=== PATIENT | female | born 1945 | race Caucasian/White ===

== ENCOUNTER 2016-11-25 05:58 | Day surgery (SDC) | payer OTHER ==
[~2016-11-25 05:58] MED LIST: LIDOCAINE W/ SODIUM BICARB 0.5 ML SYR ONE; Lactated Ringers 1,000 ML PRIMARY IV ONE; ceFAZolin Inj 2gm (Premix) 50 ML IV ONE
--- NOTE | 2016-11-25 06:33 | EKG ---
[address] [address] Measurements Intervals [place] Rate: 80 P: 77 ID: [id number] QRS: 96 QRSD: 94 T: 60 QT: 370 QTc: 405 Interpretive Statements SINUS RHYTHM BORDERLINE RIGHT AXIS DEVIATION No previous ECG available for comparison Electronically Signed On 11-25-16 07:46:25 MDT by Samir Walsh [id number]
[2016-11-25] MEDS ORDERED: BUPivacaine Inj 0.25% PF - 10ml vial ONE ×2 (06:39→08:58)
[2016-11-25] MEDS ORDERED: BETAMET ACET/BETAMET NA PH 6 MG/1 ML - 5 ML ONE (06:40)
[2016-11-25] MEDS ORDERED: Ropivacaine 0.2% VIAL 20 ML ONE (06:40)
[2016-11-25] MEDS ORDERED: EPINEPHrine Inj (1:1,000) 30mg/30ml vial ONE (06:40)
[2016-11-25] MEDS ORDERED: fentaNYL Inj 250 MCG/5 ML VIAL ONE (07:02)
[2016-11-25] MEDS ORDERED: LIDOCAINE MPF 2% - 5 ML (20 MG/1 ML) ONE (07:02)
[2016-11-25] MEDS ORDERED: MIDAZOLAM 5 MG/1 ML ONE (07:02)
[2016-11-25] MEDS ORDERED: DEXAMETHASONE SOD PHOSPHATE 4 MG/1 ML VIAL ONE (08:07)
[2016-11-25] MEDS ORDERED: KETOROLAC 30 MG/1 ML VIAL ONE (08:07)
[2016-11-25] MEDS ORDERED: KETAMINE 100 MG/1 ML - 5 ML ONE (08:07)
[2016-11-25] MEDS ORDERED: ONDANSETRON 4 MG/2 ML VIAL ONE (08:07)
[2016-11-25] MEDS ORDERED: ePHEDrine Inj 50 MG/ML AMP ONE (08:18)
[2016-11-25] MEDS ORDERED: Lactated Ringers 1,000 ML PRIMARY IV ONE (08:34)
[2016-11-25] MEDS ORDERED: BETAMET ACET/BETAMET NA PH 6 MG/1 ML - 5 ML IAC ONE (08:40)
[2016-11-25] MEDS ORDERED: Ondansetron ODT Tab 8 MG TAB PO PRN (09:03)
[2016-11-25] MEDS ORDERED: Prochlorperazine Tab 10 MG TAB PO PRN (09:03)
[2016-11-25] MEDS ORDERED: ACETAMINOPHEN 325 MG TABLET PO PRN (09:03)
[2016-11-25] MEDS ORDERED: BISACODYL 10 MG SUPPOSITORY RECTAL PRN (09:03)
[2016-11-25] MEDS ORDERED: diphenhydrAMINE 25 MG CAPSULE PO PRN (09:03)
[2016-11-25] MEDS ORDERED: ONDANSETRON 4 MG/2 ML VIAL IVP PRN (09:03)
[2016-11-25] MEDS ORDERED: NORMAL SALINE 10 ML SYRINGE FLUSH IVP PRN (09:03)
[2016-11-25] MEDS ORDERED: IBUPROFEN 400 MG TABLET PO PRN (09:03)
[2016-11-25] MEDS ORDERED: KETOROLAC 15 MG/1 ML VIAL IVP PRN (09:03)
[2016-11-25] MEDS ORDERED: MORPHINE SULFATE 2 MG/1 ML IVP PRN (09:03)
[2016-11-25] MEDS ORDERED: MAG HYDROX/AL HYDROX/SIMETH 30 ML SUSP PO PRN (09:03)
[2016-11-25] MEDS ORDERED: BISACODYL 5 MG TABLET PO PRN (09:03)
[2016-11-25] MEDS ORDERED: CALCIUM CARBONATE 500 MG (TUMS) CHEWABLE TABLET PO PRN (09:03)
[2016-11-25] MEDS ORDERED: ACETAMINOPHEN WITH CODEINE 300 MG/30 MG TABLET PO PRN (09:13)
[2016-11-25 09:30] VITALS: RESP 12
[2016-11-25] MEDS ORDERED: ACETAMINOPHEN WITH CODEINE 300 MG/30 MG TABLET PO ONE (11:08)
[2016-11-25 11:34] VITALS: TEMP 98.3
--- NOTE | 2016-11-25 16:32 | OPS CRUTCH ---
Diagnosis : Right Knee Scope Referral Reason: Knee Cryo Cuff/Walker O: The patient was issued a knee Cryo-Cuff and a walker and instructed in their proper use and care. P: No further therapy is indicated at this time. MTDD
[2016-11-26] MEDS ORDERED: ASPIRIN 325 MG EC TABLET PO SCH (09:00)
== END 2016-11-25 11:20 | disposition home or self-care (01) ==
LOC: SDSC 05:58
PROVIDERS: ATTEND Orthopaedic Surgery
DX: M23.203 Derangement of unspecified medial meniscus due to old tear or injury, right knee (principal); M23.200 Derangement of unspecified lateral meniscus due to old tear or injury, right knee; M67.51 Plica syndrome, right knee; M22.41 Chondromalacia patellae, right knee
CPT/HCPCS: 29873; 29876; 29880; 93005; 93010; J0171; J0690; J0702; J1885; J2704; J2795; J3010; J1100; J2001; J2250; J2405; J7120

== ENCOUNTER 2018-09-30 07:30 | Inpatient (IN) ==
[~2018-09-30 07:30] MED LIST changes: -LIDOCAINE W/ SODIUM BICARB 0.5 ML SYR ONE; +LIDOCAINE W/ SODIUM BICARB 0.5 ML SYR SUBD PRN; -Lactated Ringers 1,000 ML PRIMARY IV ONE; +Nasal Sanitizer POPSWAB ampule 3 AMP (Nozin) PREOP DOSE ENOS SCH; +ceFAZolin Inj 2gm (Premix) 2 GM/50 ML BAG IV ONE; -ceFAZolin Inj 2gm (Premix) 50 ML IV ONE
[2018-09-30] MEDS ORDERED: LIDOCAINE W/ SODIUM BICARB 0.5 ML SYR ONE (07:33)
[2018-09-30] MEDS ORDERED: Lactated Ringers 1,000 ML PRIMARY IV ONE (07:33)
[2018-09-30] MEDS ORDERED: ceFAZolin Inj 2gm (Premix) 2 GM/50 ML BAG IV ONE (07:33)
[2018-09-30] MEDS: Lactated Ringers 1,000 ML PRIMARY IV SCH ×3 (08:58→16:13)
[2018-09-30 09:07] LABS: BILIRUBIN,URINE NEGATIVE (NEG); CLARITY,URINE CLEAR (CLEAR); COLOR,URINE YELLOW (Y); GLUCOSE, URINE (UA) NEGATIVE (NEG); OCCULT BLOOD,URINE NEGATIVE (NEG); PH,URINE 7.5 (5.0-8.5); PROTEIN,URINE NEGATIVE (NEG); UROBILINOGEN,URINE 0.2 EU/dL (0.2)
[2018-09-30 09:09] LABS: URINE SAMPLE TYPE CLEAN CATCH URINE
[2018-09-30] MEDS ORDERED: BACITRACIN 50,000 UNIT VIAL IRRIG ONE ×2 (10:40→12:11)
[2018-09-30] MEDS ORDERED: Sodium Chloride 0.9% vial 40 ML ONE (10:40)
[2018-09-30] MEDS ORDERED: BUPivacaine Liposome/PF (Exparel) Inj 20ml vial INFIL ONE (10:41)
[2018-09-30] MEDS ORDERED: PROPOFOL 10 MG/1 ML (200 MG/20 ML) VIAL IV ONE (10:45)
[2018-09-30] MEDS ORDERED: fentaNYL Inj 250 MCG/5 ML VIAL ONE (10:46)
[2018-09-30] MEDS ORDERED: MIDAZOLAM 5 MG/1 ML ONE (10:46)
[2018-09-30] MEDS ORDERED: LIDOCAINE MPF 2% - 5 ML (20 MG/1 ML) ONE (10:46)
[2018-09-30] MEDS ORDERED: ROCURONIUM 10 MG/1 ML - 5 ML VIAL IVP ONE (10:48)
[2018-09-30] MEDS ORDERED: Sodium Chloride 0.9% 0 ML PRIMARY IV ONE (11:09)
[2018-09-30] MEDS ORDERED: Ketorolac Inj 30 MG, Morphine Inj (Ortho Cocktail) 5 MG, BUPivacaine Inj 0.25% PF 150 MG SPLASH ONE ×3 (11:15)
--- NOTE | 2018-09-30 11:29 | ORTHO.OP ---
- - -: See Dictated Operative Report
[2018-09-30] MEDS ORDERED: KETAMINE HCL 100 MG/2 ML SYRINGE IV ONE (11:44)
[2018-09-30] MEDS ORDERED: ePHEDrine Inj 50 MG/ML AMP ONE (11:52)
[2018-09-30] MEDS ORDERED: TRANEXAMIC ACID 1,000 MG / 10 ML VIAL ONE ×2 (11:56→12:02)
[2018-09-30] MEDS ORDERED: SUFENTANIL 50 MCG/1 ML ONE (12:10)
[2018-09-30] MEDS ORDERED: Sodium Chloride 0.9% vial 20 ML ONE (12:11)
--- NOTE | 2018-09-30 13:47 | CRNA.PROGR ---
Anesthesia Time - Procedure/Recovery Time Start Date: 09/30/18 End Date: 09/30/18 Anesthesia : Time In: 11:06 Anesthesia : Time Out: 13:32 Anesthesia : Total Time: 146 - Total Anesthesia Time Total Anesthesia Time (minutes): 146 - Other Weight: 54.885 kg Height: 5 ft 5 in Body Mass Index (BMI): 20.1 Physical Status: P2
--- NOTE | 2018-09-30 13:48 | CRNA.PROGR ---
Anesthesia Recovery Phase I - Post Anesthesia Evaluation Patient's Condition on Arrival in Phase I: Stable Pain Level: 1
[2018-09-30 14:08] LABS: Hematocrit [HCT] 27.5 % (37.0-47.0); Hemoglobin [HGB] 9.4 g/dL (12.0-16.0)
--- NOTE | 2018-09-30 14:15 | DI ---
XR HIP COMPLETE MIN 2VW U/L 09/30/2018 11:08 AM History: [facility] DI ^post op Comparison: None. Findings: AP view of the pelvis and AP/crosstable lateral views of the right hip demonstrate bilatera l total hip arthroplasties. There is gas in the soft tissues on the right, an expected finding in the immediate postoperative timeframe. Hardware demonstrates expected alignment without evidence of frac ture or loosening. There is no acute fracture or dislocation. Dystrophic calcifications are noted cosme ng the lateral aspect of the left hip. There are degenerative changes of the lumbar spine. Surgical s taples overlie the lateral skin of the right hip. The soft tissues are otherwise unremarkable. Impression: Status post right total hip arthroplasty without evidence of hardware complication or ac [place] osseous abnormality.
[2018-09-30] MEDS ORDERED: Ondansetron ODT Tab 8 MG TAB PO PRN (14:41)
[2018-09-30] MEDS ORDERED: IBUPROFEN 400 MG TABLET PO PRN (14:41)
[2018-09-30] MEDS ORDERED: diphenhydrAMINE 25 MG CAPSULE PO PRN (14:41)
[2018-09-30] MEDS ORDERED: MORPHINE SULFATE 2 MG/1 ML IVP PRN (14:41)
[2018-09-30] MEDS ORDERED: CALCIUM CARBONATE 500 MG (TUMS) CHEWABLE TABLET PO PRN (14:41)
[2018-09-30] MEDS ORDERED: HYDROcodone-APAP 5 MG -325 MG TABLET PO PRN (14:41)
[2018-09-30] MEDS ORDERED: BISACODYL 10 MG SUPPOSITORY RECTAL PRN (14:41)
[2018-09-30] MEDS ORDERED: MAG HYDROX/AL HYDROX/SIMETH 30 ML SUSP PO PRN (14:41)
[2018-09-30] MEDS ORDERED: Prochlorperazine Tab 10 MG TAB PO PRN (14:41)
[2018-09-30] MEDS ORDERED: MORPHINE SULFATE 10 MG/1 ML IV PRN (15:00)
[2018-09-30] MEDS ORDERED: MORPHINE SULFATE 2 MG/1 ML IV PRN (15:00)
[2018-09-30] MEDS ORDERED: MORPHINE SULFATE 4 MG/1 ML IV PRN (15:00)
--- NOTE | 2018-09-30 18:23 | CONSULT ---
Consult Note - Consult Consult Date: 09/30/18 Reason for Consult: PostOp Consulation : Ortho Primary Care Provider: NONE NONE - History of Present Illness History of Present Illness: This is a 72 years old female with medical history significant for history of hypertension, hypothyroidism and allergies, said she had history of gluten allergies however she is not on gluten free diet she said she is on Singulair for it also history of arthritis for which she came into have a right hip replacement and was done by Dr. Barragan today the hospitalist service were consulted for management of medical issues. Patient is denying complaint there is no pain now. she had some nausea earlier but that's gone. No other symptoms. Past Medical History Medical History: 1. Hypertension. 2. Hypothyroidism. 3. History of allergies, she is on Singulair for it. Surgical History: 1. History of for previous 3 hip surgeries. 2. History of inguinal hernia surgery Family History: Reviewed an Not Pertinent Past Social History: Does not smoke, does not drink and no drugs. Lives in [place]. Tobacco Use: Never Smoker In the Past 12 Months, Have Used or Abuse Any of the Following Substance: None Alcohol Use: None Review of Systems - Review of Systems All Systems: Reviewed & No Additional Complaints Except as Stated Medication / Allergies Home Medications: Home Medications Medication Instructions Recorded Confirmed Type Amlodipine Besylate 5 mg PO DAILY 09/15/18 09/30/18 History Ascorbic Acid [Vitamin C] 1,000 mg PO DAILY 09/15/18 09/30/18 History Biotin 1 mg PO DAILY 09/15/18 09/30/18 History Calcium Carbonate [Calcium] 500 mg PO DAILY 09/15/18 09/30/18 History Cholecalciferol (Vitamin D3) 1 tab PO DAILY 09/15/18 09/30/18 History [Vitamin D-400] Collagen, Hydrolysate (Bovine) 1 cap PO DAILY 09/15/18 09/30/18 History [Collagen Hydrolysate] Cyanocobalamin (Vitamin B-12) 2,500 mcg PO DAILY 09/15/18 09/30/18 History [Vitamin B12] Levocetirizine Dihydrochloride 5 mg PO PRN PRN 09/15/18 09/30/18 History [Xyzal] Levothyroxine Sodium 75 mcg PO DAILY 09/15/18 09/30/18 History Montelukast Sodium [Singulair] 10 mg PO HS 09/15/18 09/30/18 History [place]-3 Fatty Acids/Fish Oil 1 ea PO DAILY 09/15/18 09/30/18 History [[place] 3 1,000 mg Softgel] Vitamin B Complex 1 ea PO DAILY 09/15/18 09/30/18 History Zinc 50 mg PO DAILY 09/15/18 09/30/18 History Tramadol HCl 50 mg PO PRN PRN #60 tab 09/30/18 Rx Allergies/Adverse Reactions: Allergies Allergy/AdvReac Type Severity Reaction Status Date / Time No Known Allergies Allergy Verified 09/29/18 09:22 Exam - Vitals Vital Signs: Vital Signs Temperature 97 F Temperature Source Temporal Artery Scan Pulse Rate [Pulse Oximeter] 97 Pulse Rate 100 Respiratory Rate 20 Blood Pressure [Right Arm] 104/89 Blood Pressure 140/76 Pulse Ox 100 Oxygen Flow Rate RA Oxygen Delivery Method Room Air Height 5 ft 5 in Weight 121 lb - General General Appearance: No Acute Distress, Cooperative - Head Head Exam: Normal Inspection - Eye Eye Exam: POSITIVE: Normal Appearance - ENT ENT Exam: POSITIVE: Normal Exam - Neck Neck Exam: Normal Inspection - Respiratory Respiratory Exam: POSITIVE: Clear to Auscultation - Bilaterally - Cardiovascular Cardiovascular Exam: POSITIVE: RRR, Systolic Murmur - GI/Abdominal GI/Abdominal Exam: POSITIVE: Normal Bowel Sounds, Non Tender, Non Distended, Soft, No Organomegaly - Rectal Rectal Exam: POSITIVE: Deferred - External Exam: POSITIVE: Deferred Exam: POSITIVE: Deferred - Extremities Additional Extremities Exam Details: Dressing applied to the right hip posteriorly with a drain present. - Back Back Exam: POSITIVE: Normal Inspection - Neurological Neurological Exam: POSITIVE: Alert, Oriented x 3, CN II-XII Intact, No Facial Droop, Speech Intact / Clear - Psychiatric Psychiatric Exam: POSITIVE: Normal Affect Results - Labs CBC and BMP: 10/01/18 05:00 10/01/18 05:00 Assessment and Plan - Patient Problems (1) Status post right hip replacement Current Visit: Yes Status: Acute Comment: She will start PT and OT. For DVT prophylaxis she was put on Lovenox by Dr. Barragan. Code(s): Z96.641 - Presence of right artificial hip joint (2) Hypertension Current Visit: Yes Status: Acute Comment: Blood pressure is borderline I think will see what's her blood pressure tomorrow then will decide if we will restart her amlodipine. Code(s): I10 - Essential (primary) hypertension (3) Hypothyroidism Current Visit: Yes Status: Acute Comment: Continue same medications. Code(s): E03.9 - Hypothyroidism, unspecified (4) History of multiple allergies Current Visit: Yes Status: Acute Comment: She is on Singulair will verify the dosage and put her on it. Code(s): Z91.89 - Other specified personal risk factors, not elsewhere classifi ed
[2018-09-30] MEDS: ceFAZolin Inj 2gm (Premix) 2 GM/50 ML BAG IV SCH (18:47)
[2018-09-30] MEDS ORDERED: Montelukast Tab 10 MG TAB PO SCH (21:00)
[2018-09-30] MEDS: Montelukast Tab 10 MG TAB PO SCH (22:01)
[2018-09-30] MEDS: DOCUSATE 100 MG CAPSULE PO SCH (22:02)
[2018-09-30] MEDS: ONDANSETRON 4 MG/2 ML VIAL IVP PRN (22:44)
[2018-10-01] MEDS: Lactated Ringers 1,000 ML PRIMARY IV SCH ×4 (02:47→19:44)
[2018-10-01] MEDS: ceFAZolin Inj 2gm (Premix) 2 GM/50 ML BAG IV SCH (02:49)
[2018-10-01] MEDS: ONDANSETRON 4 MG/2 ML VIAL IVP PRN ×3 (05:20→23:06)
[2018-10-01 05:38] LABS: MEAN CORPUSCULAR HGB CONC 33.5 g/dL (33-37); MEAN CORPUSCULAR VOLUME 110.6 FL (81-99); MEAN PLATELET VOLUME 9.1 FL (7.4-12.2); RED BLOOD COUNT 1.89 10^6/uL (4.20-5.40)
[2018-10-01 05:43] LABS: Hematocrit [HCT] 20.9 % (37.0-47.0)
[2018-10-01 05:48] LABS: BLOOD UREA NITROGEN 11 mg/dL (7-22)
[2018-10-01] MEDS ORDERED: Sodium Chloride 0.9% 500 ML PRIMARY IV ONE (05:49)
--- NOTE | 2018-10-01 07:49 | PDOC(PROG) ---
Date of Service: 10/01/18 Time of Service: 08:00 Interval History: Subjective Patient feels nauseated today. Mostly dry heaving. Her daughter said it happened after her shoulder surgery also. I did talk to her about her low white cell count and apparently she had it for about 2 years. She never had a bone marrow biopsy apparently her primary wanted her to have it but the oncologist didn't think it was necessary. Her last white count in August was 1.7. Hemoglobin was 11.8. She is not complaining from pain in her hip today. What seems to help her pain in the past was tramadol. Objective : Data - Labs CBC and BMP: 10/01/18 05:00 10/01/18 05:00 Objective : Exam - General General Appearance: No Acute Distress Additional General Exam Details: Dry heaving - Head Head Exam: Normal Inspection - Eye Eye Exam: Normal Appearance - ENT ENT Exam: Normal Exam - Neck Neck Exam: Normal Inspection - Respiratory Respiratory Exam: Clear to Auscultation - Bilaterally - Cardiovascular Cardiovascular Exam: RRR, Systolic Murmur - GI/Abdominal GI/Abdominal Exam: Normal Bowel Sounds, Non Tender, Non Distended, Soft, No Organomegaly - Rectal Rectal Exam: Deferred - External Exam: Deferred - Extremities Extremities Exam: Normal Inspection - Back Back Exam: Normal Inspection - Neurological Neurological Exam: Alert, Oriented x 3, CN II-XII Intact, No Facial Droop, Speech Intact / Clear - Psychiatric Psychiatric Exam: Normal Affect - Integumentary Integumentary Exam: Pallor Assessment and Plan - Patient Problems (1) Status post right hip replacement Current Visit: Yes Status: Acute Comment: She started PT and OT. For DVT prophylaxis she is on Lovenox. Code(s): Z96.641 - Presence of right artificial hip joint (2) Hypertension Current Visit: Yes Status: Acute Comment: We'll continue holding amlodipine as blood pressure still borderline. Code(s): I10 - Essential (primary) hypertension (3) Hypothyroidism Current Visit: Yes Status: Acute Comment: Same med Code(s): E03.9 - Hypothyroidism, unspecified (4) History of multiple allergies Current Visit: Yes Status: Acute Comment: Continue Singulair. Code(s): Z91.89 - Other specified personal risk factors, not elsewhere classified (5) Leukopenia Current Visit: Yes Status: Acute Comment: Apparently she had it before I'm not sure whether she had a B12/folate deficiency we'll check those. She suppose to be on B12 oral tab based on her medication list. Code(s): D72.819 - Decreased white blood cell count, unspecified (6) Postoperative anemia due to acute blood loss Current Visit: Yes Status: Acute Comment: Hemoglobin is low given 2 units of blood. Will Repeat her labs tomorro w. Code(s): D62 - Acute posthemorrhagic anemia
--- NOTE | 2018-10-01 08:54 | ORTHO.PROG ---
Progress Note -: Vital Signs - Last Taken Temperature 98.4 F 10/01/18 08:40 Pulse Rate 92 10/01/18 08:40 Respiratory Rate 16 10/01/18 08:40 Blood Pressure 117/60 10/01/18 08:40 Pulse Ox 93 10/01/18 08:40 Laboratory Results 09/30/18 09/30/18 09/30/18 08:59 09:35 09:35 WBC RBC Hgb Hct MCV MCH MCHC RDW Std Deviation RDW Coeff of Valeria Plt Count MPV Sodium Potassium Chloride Carbon Dioxide Anion Gap BUN Creatinine BUN/Creatinine Ratio Glucose Calculated Osmolality Calcium Ur Collection Type Clean catch urine Urine Color Yellow Urine Clarity Clear Urine pH 7.5 Ur Specific [place] 1.015 Urine Protein Negative Urine Glucose (UA) Negative Urine Ketones 15 Urine Occult Blood Negative Urine Nitrate Negative Urine Bilirubin Negative Urine Urobilinogen 0.2 Ur Leukocyte Esterase Negative Blood Type O POSITIVE Antibody Screen Negative Crossmatch See Detail See Detail 09/30/18 10/01/18 10/01/18 14:01 05:00 05:00 WBC 2.01 L RBC 1.89 L Hgb 9.4 L 7.0 L Hct 27.5 L 20.9 L* MCV 110.6 H MCH 37.0 H MCHC 33.5 RDW Std Deviation 57.5 H RDW Coeff of Valeria 15.5 H Plt Count 146 MPV 9.1 Sodium 136 Potassium 3.6 L Chloride 102 Carbon Dioxide 28 Anion Gap 6 BUN 11 Creatinine 0.5 BUN/Creatinine Ratio 22.00 H Glucose 102 Calculated Osmolality 280.0 Calcium 8.2 L Ur Collection Type Urine Color Urine Clarity Urine pH Ur Specific [place] Urine Protein Urine Glucose (UA) Urine Ketones Urine Occult Blood Urine Nitrate Urine Bilirubin Urine Urobilinogen Ur Leukocyte Esterase Blood Type Antibody Screen Crossmatch Subjective: - Postop Day [1] c/o nausea and daughter states only scop patches worked after her shoulder surgery. Objective: - Taking PO pain medication - Tolerating regular diet - - Ambulating to chair - Labs and Vital Signs reviewed Assessment: - CMS intact - Prevena dressing intact Plan: - Discharge home once cleared by Physical Therapy - Nursing to provide and educated patient on changing dressing to a [place] dressing on postop day 7 or if Pervena losses suction before postop day 7 consider scop patch and transfusion. will discuss with hospitalist.
[2018-10-01] MEDS ORDERED: Montelukast Tab 10 MG TAB PO SCH (09:00)
[2018-10-01] MEDS ORDERED: SCOPOLAMINE HYDROBROMIDE 1.5 MG - 1 EACH PATCH TRANSDERM SCH (09:00)
[2018-10-01] MEDS ORDERED: BIOTIN 1 MG PO SCH (09:00)
[2018-10-01] MEDS: traMADol 50 MG TABLET PO PRN ×2 (09:45→21:47)
[2018-10-01 10:13] LABS: BAND NEUTROPHILS % 4 % (0-10); MONOCYTES % (MANUAL) 19 % (0-12); NEUTROPHILS % (MANUAL) 36 % (50-80)
[2018-10-01 10:14] LABS: BASOPHILS % (MANUAL) 0 % (0-1); EOSINOPHILS % (MANUAL) 1 % (0-8); PLATELET MORPHOLOGY COMMENT NORMAL MORPHOLOGY (NORM)
[2018-10-01 10:15] LABS: RBC MORPHOLOGY COMMENT NORMAL MORPHOLOGY (NORM)
[2018-10-01 10:18] LABS: WBC MORPHOLOGY COMMENT SEE COMMENTS (NORM)
[2018-10-01] MEDS ORDERED: DIAZEPAM 10 MG/2 ML (5 MG/1 ML) CARPUJECT IVP ONE (10:30)
[2018-10-01] MEDS ORDERED: DIAZEPAM 10 MG/2 ML (5 MG/1 ML) CARPUJECT IVP PRN (11:11)
[2018-10-01] MEDS: LEVOTHYROXINE 75 MCG TABLET PO SCH (11:35)
[2018-10-01] MEDS: DOCUSATE 100 MG CAPSULE PO SCH ×2 (11:35→21:15)
[2018-10-01] MEDS: ENOXAPARIN SODIUM 30 MG/0.3 ML SYRINGE SUBCUT SCH ×2 (11:47→21:16)
[2018-10-01] MEDS: Multivitamin Tab 1 TAB PO SCH (11:47)
[2018-10-01] MEDS: CYANOCOBALAMIN (VITAMIN B-12) 1,000 MCG TABLET.ER PO SCH (11:48)
[2018-10-01] MEDS: ASCORBIC ACID Chewable 500 MG TABLET PO SCH (11:48)
[2018-10-01] MEDS: PANTOPRAZOLE IV 40 MG VIAL IVP SCH (14:24)
--- NOTE | 2018-10-01 16:46 | PT.PROG ---
Progress Note Progress Note: attempted eval 2 x and pt was asleep in the afternoon. will attempt eval tomorrow.
[2018-10-01] MEDS: Montelukast Tab 10 MG TAB PO SCH (21:16)
[2018-10-02] MEDS: ONDANSETRON 4 MG/2 ML VIAL IVP PRN (04:04)
[2018-10-02] MEDS: traMADol 50 MG TABLET PO PRN ×5 (04:05→16:34)
[2018-10-02] MEDS: LEVOTHYROXINE 75 MCG TABLET PO SCH (04:51)
[2018-10-02 05:18] LABS: Hematocrit [HCT] 28.1 % (37.0-47.0); Hemoglobin [HGB] 9.2 g/dL (12.0-16.0); MEAN CORPUSCULAR HEMOGLOBIN 33.8 PG (27-31); MEAN CORPUSCULAR HGB CONC 32.7 g/dL (33-37); MEAN CORPUSCULAR VOLUME 103.3 FL (81-99); MEAN PLATELET VOLUME 9.6 FL (7.4-12.2); RED BLOOD COUNT 2.72 10^6/uL (4.20-5.40)
[2018-10-02 05:29] LABS: BLOOD UREA NITROGEN 8 mg/dL (7-22); BUN/CREATININE RATIO 13.33 (6-20)
[2018-10-02 06:15] LABS: PLATELET MORPHOLOGY COMMENT NORMAL MORPHOLOGY (NORM); RBC MORPHOLOGY COMMENT NORMAL MORPHOLOGY (NORM); WBC MORPHOLOGY COMMENT NORMAL MORPHOLOGY (NORM)
[2018-10-02 06:25] LABS: BAND NEUTROPHILS % 0 % (0-10); BASOPHILS % (MANUAL) 0 % (0-1); EOSINOPHILS % (MANUAL) 0 % (0-8); METAMYELOCYTES % 7 %; MONOCYTES % (MANUAL) 12 % (0-12); MYELOCYTES % 3 %; NEUTROPHILS % (MANUAL) 66 % (50-80); PROMYELOCYTES % 0 %
--- NOTE | 2018-10-02 08:09 | PDOC(PROG) ---
Date of Service: 10/02/18 Time of Service: 08:15 Interval History: Subjective Patient feels better today compared to yesterday. She looks better. She is denying significant pain in her hip while laying down but she says it increased with movement. Objective : Data - Labs CBC and BMP: 10/02/18 04:35 10/02/18 04:35 Objective : Exam - General General Appearance: No Acute Distress, Cooperative - Head Head Exam: Normal Inspection - Eye Eye Exam: Normal Appearance - ENT ENT Exam: Normal Exam - Neck Neck Exam: Normal Inspection - Respiratory Respiratory Exam: Clear to Auscultation - Bilaterally - Cardiovascular Cardiovascular Exam: RRR - GI/Abdominal GI/Abdominal Exam: Normal Bowel Sounds, Non Tender, Non Distended, Soft, No Organomegaly - Rectal Rectal Exam: Deferred - External Exam: Deferred - Extremities Extremities Exam: Normal Inspection - Back Back Exam: Normal Inspection - Neurological Neurological Exam: Alert, Oriented x 3, CN II-XII Intact, Speech Intact / Clear, Moves All Extremities Equally - Psychiatric Psychiatric Exam: Normal Affect - Integumentary Integumentary Exam: Normal Color Assessment and Plan - Patient Problems (1) Status post right hip replacement Current Visit: Yes Status: Acute Comment: She did not do much of PT or OT yesterday because she was getting transfusion and she received Valium when she slipped. She will do PT and OT today and then will see her progress. will Cut back on the fluid and then will stop it. Nausea seemed to be improved. For DVT prophylaxis she is on Lovenox. Code(s): Z96.641 - Presence of right artificial hip joint (2) Hypertension Current Visit: Yes Status: Acute Comment: Continue holding amlodipine Code(s): I10 - Essential (primary) hypertension (3) Hypothyroidism Current Visit: Yes Status: Acute Comment: Same med Code(s): E03.9 - Hypothyroidism, unspecified (4) History of multiple allergies Current Visit: Yes Status: Acute Comment: Continue Singulair. Code(s): Z91.89 - Other specified personal risk factors, not elsewhere classified (5) Leukopenia Current Visit: Yes Status: Acute Comment: White count seemed to be better today. Code(s): D72.819 - Decreased white blood cell count, unspecified (6) Postoperative anemia due to acute blood loss Current Visit: Yes Status: Acute Comment: Hemoglobin is better today we'll hold off on further transfusion. Code(s): D62 - Acute posthemorrhagic anemia
[2018-10-02] MEDS ORDERED: ZINC 50 MG PO SCH (09:00)
[2018-10-02] MEDS ORDERED: CYCLOBENZAPRINE 10 MG TABLET PO PRN (09:18)
--- NOTE | 2018-10-02 09:30 | ORTHO.PROG ---
Last Taken Vital Signs: Vital Signs - Last Taken Temperature 98.3 F 10/02/18 07:25 Pulse Rate 90 10/02/18 07:25 Respiratory Rate 18 10/02/18 07:25 Blood Pressure 105/65 10/02/18 07:25 Pulse Ox 93 10/02/18 07:25 Subjective: Patient is POD 2 from Right MIRANDA. She reports increased pain in the right anterior hip radiating into her thigh when ambulating. She is currently taking tramadol for pain and feels that her pain is somewhat controlled on this medication. Denies any current N/V, calf pain, CP, SOB, or dizziness. Objective: Fall Risk Total Score Fall Risk Score Laboratory Results 09/30/18 10/01/18 10/02/18 09:35 07:36 04:35 WBC RBC Hgb Hct MCV MCH MCHC RDW Std Deviation RDW Coeff of Valeria Plt Count MPV Neutrophils % (Manual) 36 L Band Neutrophils % 4 Lymphocytes % (Manual) 40 Monocytes % (Manual) 19 H Eosinophils % (Manual) 1 Basophils % (Manual) 0 Metamyelocytes % Myelocytes % Promyelocytes % Blast Cells WBC Morphology Comment See comments Plt Morphology Comment Normal morphology RBC Morph Comment Normal morphology Sodium 134 L Potassium 3.4 L Chloride 101 Carbon Dioxide 28 Anion Gap 5 BUN 8 Creatinine 0.6 BUN/Creatinine Ratio 13.33 Glucose 101 Calculated Osmolality 275.0 Calcium 8.2 L Blood Type O POSITIVE Antibody Screen Negative Crossmatch See Detail 10/02/18 04:35 WBC 5.70 RBC 2.72 L Hgb 9.2 L Hct 28.1 L MCV 103.3 H MCH 33.8 H MCHC 32.7 L RDW Std Deviation 64.2 H RDW Coeff of Valeria 18.5 H Plt Count 126 L MPV 9.6 Neutrophils % (Manual) 66 Band Neutrophils % 0 Lymphocytes % (Manual) 12 Monocytes % (Manual) 12 Eosinophils % (Manual) 0 Basophils % (Manual) 0 Metamyelocytes % 7 Myelocytes % 3 Promyelocytes % 0 Blast Cells 0 WBC Morphology Comment Normal morphology Plt Morphology Comment Normal morphology RBC Morph Comment Normal morphology Sodium Potassium Chloride Carbon Dioxide Anion Gap BUN Creatinine BUN/Creatinine Ratio Glucose Calculated Osmolality Calcium Blood Type Antibody Screen Crossmatch On exam, patient is A&O x 3 and is not in any acute distress. She is up ambulating with PT. Negative calf tenderness. Dressing clean/dry/intact. NV intact. Radiograph of right hip shows s/p Right MIRANDA with well fixed and positioned components. Assessment: POD 2 from routine right MIRANDA stable and doing well. Pain controlled, but does report having leg cramping and anterior thigh pain with ambulating. Plan: * WBAT with walker * Patient not currently cleared by PT for discharge and will stay another day * DVT ppx: continue lovenox then discharge home on ASA 81mg 1 tablet daily * discharge home with portable SCDs * wound care: continue Prevena until POD 5 then discontinue and shower as normal * pain meds: increase tramadol 50mg 1-2 tabs every 6 hours prn pain * muscle spasms: start Flexeril 10mg 1 tablet TID prn muscle spasms * PT: continue as outpatient with posterior hip restrictions * H/H stable at 9/28 after transfusion on POD 1 * discharge home once cleared by PT and hospitalist * follow-up with orthopedics as scheduled in 2 weeks
[2018-10-02] MEDS: Lactated Ringers 1,000 ML PRIMARY IV SCH (09:41)
[2018-10-02] MEDS: Potassium Chloride 20mEq Packet PO SCH (10:03)
[2018-10-02] MEDS: ENOXAPARIN SODIUM 30 MG/0.3 ML SYRINGE SUBCUT SCH ×2 (10:03→21:31)
[2018-10-02] MEDS: PANTOPRAZOLE IV 40 MG VIAL IVP SCH ×2 (10:03→10:21)
[2018-10-02] MEDS: DOCUSATE 100 MG CAPSULE PO SCH ×2 (10:04→21:31)
[2018-10-02] MEDS: ASCORBIC ACID Chewable 500 MG TABLET PO SCH (11:38)
[2018-10-02] MEDS: CYANOCOBALAMIN (VITAMIN B-12) 1,000 MCG TABLET.ER PO SCH (11:39)
[2018-10-02] MEDS: Multivitamin Tab 1 TAB PO SCH (11:39)
[2018-10-02] MEDS: PANTOPRAZOLE 40 MG TABLET PO SCH (11:48)
[2018-10-02] MEDS ORDERED: traMADol 50 MG TABLET PO PRN ×2 (17:30)
[2018-10-02 22:03] LABS: Hematocrit [HCT] 30.2 % (37.0-47.0); Hemoglobin [HGB] 10.1 g/dL (12.0-16.0); MEAN CORPUSCULAR HEMOGLOBIN 34.6 PG (27-31); MEAN CORPUSCULAR HGB CONC 33.4 g/dL (33-37); MEAN CORPUSCULAR VOLUME 103.4 FL (81-99); MEAN PLATELET VOLUME 9.6 FL (7.4-12.2); RED BLOOD COUNT 2.92 10^6/uL (4.20-5.40)
--- NOTE | 2018-10-02 22:12 | EKG ---
[address] [address] Measurements Intervals [place] Rate: 96 P: 71 OR: 167 QRS: 65 QRSD: 95 T: 64 QT: 328 QTc: 382 Interpretive Statements SINUS RHYTHM Compared to ECG 11/25/2016 06:29:11 No significant changes Electronically Signed On 10-04-18 09:20:19 MST by Casey Rodney MD [email or web address]
[2018-10-02 22:18] LABS: BLOOD UREA NITROGEN 10 mg/dL (7-22); BUN/CREATININE RATIO 16.66 (6-20); SERUM ALBUMIN 3.3 g/dL (3.5-4.8)
[2018-10-02 22:29] LABS: PLATELET MORPHOLOGY COMMENT NORMAL MORPHOLOGY (NORM); RBC MORPHOLOGY COMMENT NORMAL MORPHOLOGY (NORM); WBC MORPHOLOGY COMMENT NORMAL MORPHOLOGY (NORM)
[2018-10-02 22:30] LABS: BAND NEUTROPHILS % 0 % (0-10); BASOPHILS % (MANUAL) 1 % (0-1); EOSINOPHILS % (MANUAL) 1 % (0-8); METAMYELOCYTES % 0 %; MONOCYTES % (MANUAL) 22 % (0-12); MYELOCYTES % 0 %; NEUTROPHILS % (MANUAL) 53 % (50-80); PROMYELOCYTES % 0 %
[2018-10-02 22:32] LABS: VENOUS PH 7.4 (7.32-7.42)
[2018-10-02 22:47] LABS: Erythrocyte Sediment Rate 82 MM/HR (0-20)
--- NOTE | 2018-10-02 22:51 | DI ---
EXAM: CT Head Without Intravenous Contrast CLINICAL HISTORY: ITS.REASON MENTAL STATUS CHANGE Physician Notes: Tech Comments: TECHNIQUE: Axial computed tomography images of the head/brain without intravenous contrast. COMPARISON: No relevant prior studies available. FINDINGS: Brain: No intracranial hemorrhage or mass effect. No clear evidence of acute large vessel territorial infarct. Mild involutional and microvascular ischemic changes.. Ventricles: Unremarkable. No ventriculomegaly. Bones/joints: Marked degeneration at the atlantoaxial joints. No acute fracture. Soft tissues: Unremarkable. Sinuses: Unremarkable as visualized. No acute sinusitis. Mastoid air cells: Unremarkable as visualized. No mastoid effusion. IMPRESSION: No acute intracranial process. Critical Value Communications 10/02/18 23:04 Call Doctor Regarding Stroke, called Dr. Marlow on 10/02 23:03 (-07:00)
--- NOTE | 2018-10-02 22:54 | DI ---
EXAM: XR Chest, 1 View CLINICAL HISTORY: ITS.REASON MENTAL STATUS CHANGE Physician Notes: Tech Comments: TECHNIQUE: Frontal view of the chest. COMPARISON: No relevant prior studies available. FINDINGS: Lungs: Pulmonary hyperexpansion. Correlate for emphysema. No consolidation. Pleural space: Mild elevation of the right hemidiaphragm. No pneumothorax. Heart: Unremarkable. No cardiomegaly. Mediastinum: Unremarkable. Bones/joints: Degenerative changes. Widening of the right acromioclavicular joint. Chronic rib deformities. IMPRESSION: Pulmonary hyperexpansion. Correlate for emphysema. No consolidation.
[2018-10-02] MEDS ORDERED: Lactated Ringers 1,000 ML PRIMARY IV SCH (23:15)
[2018-10-03] MEDS: LEVOTHYROXINE 75 MCG TABLET PO SCH (04:45)
[2018-10-03 05:18] LABS: Hematocrit [HCT] 28.3 % (37.0-47.0); Hemoglobin [HGB] 9.3 g/dL (12.0-16.0); MEAN CORPUSCULAR HEMOGLOBIN 33.9 PG (27-31); MEAN CORPUSCULAR HGB CONC 32.9 g/dL (33-37); MEAN CORPUSCULAR VOLUME 103.3 FL (81-99); RED BLOOD COUNT 2.74 10^6/uL (4.20-5.40)
[2018-10-03 05:36] LABS: BLOOD UREA NITROGEN 9 mg/dL (7-22)
[2018-10-03 05:46] LABS: PLATELET MORPHOLOGY COMMENT NORMAL MORPHOLOGY (NORM); RBC MORPHOLOGY COMMENT NORMAL MORPHOLOGY (NORM); WBC MORPHOLOGY COMMENT NORMAL MORPHOLOGY (NORM)
[2018-10-03 05:47] LABS: BAND NEUTROPHILS % 0 % (0-10); NEUTROPHILS % (MANUAL) 41 % (50-80)
[2018-10-03 05:48] LABS: BASOPHILS % (MANUAL) 0 % (0-1); EOSINOPHILS % (MANUAL) 0 % (0-8); METAMYELOCYTES % 0 %; MONOCYTES % (MANUAL) 11 % (0-12); MYELOCYTES % 0 %; PROMYELOCYTES % 0 %
[2018-10-03] MEDS: PANTOPRAZOLE 40 MG TABLET PO SCH (07:00)
[2018-10-03] MEDS: Multivitamin Tab 1 TAB PO SCH (09:13)
[2018-10-03] MEDS: CYANOCOBALAMIN (VITAMIN B-12) 1,000 MCG TABLET.ER PO SCH (09:14)
[2018-10-03] MEDS: Potassium Chloride 20mEq Packet PO SCH (09:14)
[2018-10-03] MEDS: ENOXAPARIN SODIUM 30 MG/0.3 ML SYRINGE SUBCUT SCH ×2 (09:16→20:21)
[2018-10-03] MEDS: DOCUSATE 100 MG CAPSULE PO SCH ×2 (09:16→20:22)
--- NOTE | 2018-10-03 09:19 | PDOC(PROG) ---
Date of Service: 10/03/18 Time of Service: 09:00 Interval History: Subjective Patient is much better today compared to last night. She is awake, with it and denying symptoms. There is no nausea. Pain seemed to be acceptable so far. She will start physical therapy shortly. Objective : Data - Labs CBC and BMP: 10/03/18 05:00 10/03/18 05:00 Objective : Exam - General General Appearance: No Acute Distress, Cooperative - Head Head Exam: Normal Inspection - Eye Eye Exam: Normal Appearance - ENT ENT Exam: Normal Exam - Neck Neck Exam: Normal Inspection - Respiratory Respiratory Exam: Clear to Auscultation - Bilaterally - Cardiovascular Cardiovascular Exam: RRR, Systolic Murmur - GI/Abdominal GI/Abdominal Exam: Normal Bowel Sounds, Non Tender, Non Distended, Soft, No Organomegaly - Rectal Rectal Exam: Deferred - External Exam: Deferred - Extremities Extremities Exam: Normal Inspection - Back Back Exam: Normal Inspection - Neurological Neurological Exam: Alert, Oriented x 3, CN II-XII Intact, No Facial Droop, Speech Intact / Clear, Moves All Extremities Equally - Psychiatric Psychiatric Exam: Normal Affect - Integumentary Integumentary Exam: Normal Color Assessment and Plan - Patient Problems (1) Status post right hip replacement Current Visit: Yes Status: Acute Comment: Continue PT and OT. We DC'd some of the medication last night because of alteration in mental status. I think all the testing point to medication side effects. We DC'd the scopolamine patch and we DC the tramadol. She is on Tylenol only for pain now. I did tell the daughter will try to see if we can control her pain only with the Tylenol. If only necessary when we cannot control her pain will puts her only on tramadol 50 mg. For DVT prophylaxis she is on Lovenox. In terms of discharge probably watch her another night and if the physical therapy cleared her to go home we'll try to discharge her early tomorrow. Code(s): Z96.641 - Presence of right artificial hip joint (2) Hypertension Current Visit: Yes Status: Acute Comment: She has history of hypertension, but we have been holding her blood pressure medication and blood pressures so far is acceptable. Code(s): I10 - Essential (primary) hypertension (3) Hypothyroidism Current Visit: Yes Status: Acute Comment: Same med Code(s): E03.9 - Hypothyroidism, unspecified (4) History of multiple allergies Current Visit: Yes Status: Acute Comment: She is on Singulair continue. Code(s): Z91.89 - Other specified personal risk factors, not elsewhere classified (5) Leukopenia Current Visit: Yes Status: Acute Comment: This is a chronic issue and level seems to be acceptable Code(s): D72.819 - Decreased white blood cell count, unspecified (6) Postoperative anemia due to acute blood loss Current Visit: Yes Status: Acute Comment: She is Status post blood transfusion Hb is acceptable. The slight drop in Hb I think because of the fluid we gave last night. Code(s): D62 - Acute posthemorrhagic anemia
--- NOTE | 2018-10-03 10:32 | ORTHO.PROG ---
Last Taken Vital Signs: Vital Signs - Last Taken Temperature 99.1 F 10/03/18 08:20 Pulse Rate 77 10/03/18 08:20 Respiratory Rate 18 10/03/18 08:20 Blood Pressure 122/61 10/03/18 08:20 Pulse Ox 99 10/03/18 08:20 Subjective: Patient is POD 3 from Right MIRADNA. She had an incident last night where she became lethargic and a concern for a facial droop. The incident resolved and the workup was negative for CVA. She feels at her baseline today. Denies any CP, SOB, F/C, calf pain. Her pain is currently controlled on Tylenol. Objective: Laboratory Results 10/02/18 10/02/18 10/02/18 22:00 22:00 22:00 WBC 3.95 L RBC 2.92 L Hgb 10.1 L Hct 30.2 L MCV 103.4 H MCH 34.6 H MCHC 33.4 RDW Std Deviation 63.2 H RDW Coeff of Valeria 17.9 H Plt Count 140 MPV 9.6 Neutrophils % (Manual) 53 Band Neutrophils % 0 Lymphocytes % (Manual) 23 Monocytes % (Manual) 22 H Eosinophils % (Manual) 1 Basophils % (Manual) 1 Metamyelocytes % 0 Myelocytes % 0 Promyelocytes % 0 Blast Cells 0 WBC Morphology Comment Normal morphology Plt Morphology Comment Normal morphology RBC Morph Comment Normal morphology ESR 82 H PT 10.5 INR 1.03 APTT 25.4 VBG pH VBG pCO2 VBG HCO3 VBG Base Excess Sodium 131 L Potassium 4.2 Chloride 96 L Carbon Dioxide 28 Anion Gap 7 BUN 10 Creatinine 0.6 BUN/Creatinine Ratio 16.66 Glucose 111 H Calculated Osmolality 271.0 Calcium 8.6 L Total Bilirubin 0.7 AST 31 ALT 31 Alkaline Phosphatase 82 Troponin I C-Reactive Protein 21.2 H Total Protein 5.6 L Albumin 3.3 L Globulin 2.3 L Albumin/Globulin Ratio 1.40 TSH Free T4 10/02/18 10/02/18 10/02/18 22:00 22:00 22:23 WBC RBC Hgb Hct MCV MCH MCHC RDW Std Deviation RDW Coeff of Valeria Plt Count MPV Neutrophils % (Manual) Band Neutrophils % Lymphocytes % (Manual) Monocytes % (Manual) Eosinophils % (Manual) Basophils % (Manual) Metamyelocytes % Myelocytes % Promyelocytes % Blast Cells WBC Morphology Comment Plt Morphology Comment RBC Morph Comment ESR PT INR APTT VBG pH 7.40 VBG pCO2 43 L VBG HCO3 26 VBG Base Excess 2 Sodium Potassium Chloride Carbon Dioxide Anion Gap BUN Creatinine BUN/Creatinine Ratio Glucose Calculated Osmolality Calcium Total Bilirubin AST ALT Alkaline Phosphatase Troponin I 0.037 C-Reactive Protein Total Protein Albumin Globulin Albumin/Globulin Ratio TSH 5.71 H Free T4 1.76 H 10/03/18 10/03/18 05:00 05:00 WBC 3.04 L RBC 2.74 L Hgb 9.3 L Hct 28.3 L MCV 103.3 H MCH 33.9 H MCHC 32.9 L RDW Std Deviation 61.2 H RDW Coeff of Valeria 17.5 H Plt Count 122 L MPV 9.0 Neutrophils % (Manual) 41 L Band Neutrophils % 0 Lymphocytes % (Manual) 48 Monocytes % (Manual) 11 Eosinophils % (Manual) 0 Basophils % (Manual) 0 Metamyelocytes % 0 Myelocytes % 0 Promyelocytes % 0 Blast Cells 0 WBC Morphology Comment Normal morphology Plt Morphology Comment Normal morphology RBC Morph Comment Normal morphology ESR PT INR APTT VBG pH VBG pCO2 VBG HCO3 VBG Base Excess Sodium 133 L Potassium 3.9 Chloride 99 Carbon Dioxide 30 Anion Gap 4 L BUN 9 Creatinine 0.5 BUN/Creatinine Ratio 18.00 Glucose 87 Calculated Osmolality 273.0 Calcium 8.3 L Total Bilirubin AST ALT Alkaline Phosphatase Troponin I C-Reactive Protein Total Protein Albumin Globulin Albumin/Globulin Ratio TSH Free T4 Assessment: POD 3 from Right MIRANDA stable and doing well Plan: * not yet cleared by PT and hospitalist, staying another day for monitoring * DVT ppx: discharge home on ASA 81mg 1 tab daily and portable SCDs * Pain meds: discharge home on tylenol and tramadol * muscle relaxer: discharge home on Flexeril * start outpatient PT upon discharge * WBAT with walker * discharge home once cleared by PT * follow-up with orthopedics in 2 weeks as scheduled
[2018-10-03] MEDS: ACETAMINOPHEN 325 MG TABLET PO PRN ×2 (10:45→20:27)
[2018-10-03] MEDS: BISACODYL 5 MG TABLET PO PRN (10:45)
--- NOTE | 2018-10-03 11:15 | PT.PROG ---
Progress Note Progress Note: S: pt reports she is doing fair continues to have pain. O: nsg okay'd prior to PT . pt instructed in supine to sit transfer with min assist x 1 for RLE assistance to EOB. pt instructed in sit to stand transfer with CGA x 1 with walker. pt transferred to restroom with CGA x 1 and min assist x 1 for stand to sit transfer to toliet. pt instructed to perform ambulation with CGA x 1 and walker step to gait pattern x 50 feet . pt returned to her bed min assistance x1 for bed mobility and sit to supine transfer. pt left in her bed with bed alarm activated and call light within reach. A: pt tolerated therapy fair, still limited in mobility due to pain. would benefit from continued skilled therapy to improve mobility. P: cont per POC.
[2018-10-03] MEDS: ASCORBIC ACID Chewable 500 MG TABLET PO SCH (15:16)
[2018-10-03 16:33] LABS: BILIRUBIN,URINE NEGATIVE (NEG); CLARITY,URINE CLEAR (CLEAR); COLOR,URINE YELLOW (Y); GLUCOSE, URINE (UA) NEGATIVE (NEG); OCCULT BLOOD,URINE NEGATIVE (NEG); PH,URINE 6.5 (5.0-8.5); PROTEIN,URINE NEGATIVE (NEG); URINE SAMPLE TYPE CLEAN CATCH URINE; UROBILINOGEN,URINE 0.2 EU/dL (0.2)
[2018-10-03] MEDS ORDERED: Montelukast Tab 10 MG TAB PO SCH (21:00)
[2018-10-04] MEDS: LEVOTHYROXINE 75 MCG TABLET PO SCH (04:41)
[2018-10-04 07:07] VITALS: BP 149/78; RESP 19; TEMP 98; O2SAT 98
[2018-10-04] MEDS: BISACODYL 5 MG TABLET PO PRN (07:56)
[2018-10-04] MEDS: PANTOPRAZOLE 40 MG TABLET PO SCH (07:56)
[2018-10-04] MEDS ORDERED: Patch Removal PATCH TRANSDERM SCH (09:00)
[2018-10-04] MEDS: ACETAMINOPHEN 325 MG TABLET PO PRN (09:04)
[2018-10-04] MEDS: DOCUSATE 100 MG CAPSULE PO SCH (09:32)
[2018-10-04] MEDS: Multivitamin Tab 1 TAB PO SCH (09:32)
[2018-10-04] MEDS: ENOXAPARIN SODIUM 30 MG/0.3 ML SYRINGE SUBCUT SCH (09:32)
[2018-10-04] MEDS: CYANOCOBALAMIN (VITAMIN B-12) 1,000 MCG TABLET.ER PO SCH (09:32)
[2018-10-04] MEDS: Potassium Chloride 20mEq Packet PO SCH (09:32)
[2018-10-04] MEDS: ASCORBIC ACID Chewable 500 MG TABLET PO SCH (09:33)
--- NOTE | 2018-10-04 09:45 | PTI REPORT ---
Thank you for the referral of Natacha Ludwig. She was seen on 10/02/18 for an inpatient evaluation status post right total hip replacement. SUBJECTIVE: The patient is a 72-year-old female. The patient reports she lives in [place] with her and grandson. Her daughter lives about a half a city block away; [place]. The patient does not have any stairs at her home. She has had hip surgeries before and has been independent. The patient reports her pain is high. The patient was previously independent with cooking, cleaning, bathing, and ADLs. PAST MEDICAL HISTORY: Past medical history can be found in the patient's medical record. OBJECTIVE FINDINGS: General observations: Nursing okayed treatment prior to PT. Bed mobility: The patient required min assist x1 for supine to sit transfer to edge of bed. Transfers: The patient required contact guard assist x1 for sit to stand transfer with walker. The patient was issued a walker. Ambulation: The patient was instructed to ambulate approximately 25 feet with contact guard assist x1 and walker. The patient demonstrated high levels of pain and reports high levels of pain. Activities of daily living: The patient was instructed to use the restroom with contact guard assist x1 for safety. The patient was independent with toileting but required contact guard assist x1 for transfers. ASSESSMENT: The patient is a 72-year-old female who is status post right total hip replacement. The patient would benefit from skilled therapy in order to improve functional mobility and to return to prior level of function. The patient's prognosis for therapy is good. Problem List: Decreased strength Decreased functional mobility Decreased endurance Short-Term Goals: To be met by discharge from inpatient: Patient will be independent with all transfers. Patient will be able to ambulate 150 feet independently. Patient will be able to list posterior hip precautions. Long-Term Goals: To be met following discharge from inpatient: Patient will benefit from outpatient physical therapy, but ultimately will be able to return home per prior level of function. TREATMENT PLAN: Patient will be seen B.I.D during the week and one time per day over the weekend as an inpatient for therapeutic exercise, functional activity, neuromuscular reeducation, gait training, modalities as needed, and range of motion. INITIAL TREATMENT: Treatment today consisted of the initial evaluation. Following treatment the patient was returned to her chair with contact guard assist x1 and min cues for technique and hand placement on the chair. We reviewed posterior hip precautions. The patient was left in chair with chair alarm activated and call light within reach with Dr. Barragan's PA present in room. SANDRINE
--- NOTE | 2018-10-04 10:09 | DCSUMMARY ---
Hospitalization Summary Admit Date: 09/30/2018 Discharge Date: 10/04/18 Hospital Course: Discharge diagnoses 1. Status post right hip replacement 2. History of hypertension 3. History of hypothyroidism 4. History of multiple allergies, including gluten 5. Episode of unresponsiveness likely medication related resolved 6. Anemia secondary to postoperative blood loss status post transfusion. 7. History of leukopenia 8. History of Systolic murmur Hospital course This is a 72 years old female with medical history significant for history of hypertension, hypothyroidism and allergies including gluten allergies for which she is on Singulair, history of arthritis for which she came in to have a right hip replacement and was done by Dr. Barragan the hospitalist service were consulted for management of medical issues. Her postoperative course was complicated by nausea the first day, what worked for her in the past with scopolamine patch so we put her on that. The nurse orthodontic technician later on gave her diazepam and she slept that day. She did have a anemia secondary to postoperative blood loss and she received 2 units of blood. On the second postoperative day she was doing better and she started physical therapy. However on the she had an episode where she was very hard to awake very lethargic we did multiple testing they where all negative, and we believe that it was secondary to medication. We did stop the tramadol and we did stop the scopolamine patch and we kept her another night. On the day of discharge she was doing better exam unremarkable she was created from physical therapy and orthopedic so we thought that she could be discharged home and follow-up with Dr. Barragan as an outpatient and with her primary and to continue physical therapy. In terms of DVT prophylaxis initially she was on Lovenox and on discharge the orthopedics service wants to be on aspirin. Discharge instruction Diet regular activity as tolerated Medications Current Medication(s) Medication Instructions Recorded Confirmed Type Amlodipine Besylate 5 mg PO DAILY 09/15/18 09/30/18 History Ascorbic Acid [Vitamin C] 1,000 mg PO DAILY 09/15/18 09/30/18 History Biotin 1 mg PO DAILY 09/15/18 09/30/18 History Calcium Carbonate [Calcium] 500 mg PO DAILY 09/15/18 09/30/18 History Cholecalciferol (Vitamin D3) 1 tab PO DAILY 09/15/18 09/30/18 History [Vitamin D-400] Collagen, Hydrolysate (Bovine) 1 cap PO DAILY 09/15/18 09/30/18 History [Collagen Hydrolysate] Cyanocobalamin (Vitamin B-12) 2,500 mcg PO DAILY 09/15/18 09/30/18 History [Vitamin B12] Levocetirizine Dihydrochloride 5 mg PO PRN PRN 09/15/18 09/30/18 History [Xyzal] Levothyroxine Sodium 75 mcg PO DAILY 09/15/18 09/30/18 History Montelukast Sodium [Singulair] 10 mg PO HS 09/15/18 09/30/18 History Madison-3 Fatty Acids/Fish Oil 1 ea PO DAILY 09/15/18 09/30/18 History [Madison 3 1,000 mg Softgel] Vitamin B Complex 1 ea PO DAILY 09/15/18 09/30/18 History Zinc 50 mg PO DAILY 09/15/18 09/30/18 History Tramadol HCl 50 mg PO PRN PRN #60 tab 09/30/18 Rx Follow-up with her PCP and Dr. Barragan as an outpatient Condition at discharge was stable for discharge Exam - Vitals Vital Signs: Vital Signs Temperature 98 F Temperature Source Temporal Artery Scan Pulse Rate [Pulse Oximeter] 75 Pulse Rate [Apical] 70 Pulse Rate 89 Respiratory Rate 19 Blood Pressure [Left Arm] 149/78 Blood Pressure [Right Arm] 108/56 Blood Pressure 122/56 Pulse Ox 98 Oxygen Flow Rate 3 Oxygen Delivery Method Room Air Height 5 ft 5 in Weight 130 lb - General General Appearance: No Acute Distress, Cooperative - Head Head Exam: Normal Inspection - Eye Eye Exam: POSITIVE: Normal Appearance - ENT ENT Exam: POSITIVE: Normal Exam - Neck Neck Exam: Normal Inspection - Respiratory Respiratory Exam: POSITIVE: Clear to Auscultation - Bilaterally - Cardiovascular Cardiovascular Exam: POSITIVE: RRR, Systolic Murmur - GI/Abdominal GI/Abdominal Exam: POSITIVE: Normal Bowel Sounds, Non Tender, Non Distended, Soft - Rectal Rectal Exam: POSITIVE: Deferred - External Exam: POSITIVE: Deferred - Extremities Extremities Exam: POSITIVE: Normal Inspection - Back Back Exam: POSITIVE: Normal Inspection - Neurological Neurological Exam: POSITIVE: Alert, Oriented x 3, CN II-XII Intact, No Facial Droop, Speech Intact / Clear, Moves All Extremities Equally - Psychiatric Psychiatric Exam: POSITIVE: Normal Affect Patient Problems - Patient Problem List (1) Status post right hip replacement Status: Acute Code(s): Z96.641 - Presence of right artificial hip joint Category: Surgical (2) Hypertension Status: Acute Code(s): I10 - Essential (primary) hypertension Category: Medical (3) Hypothyroidism Status: Acute Code(s): E03.9 - Hypothyroidism, unspecified Category: Medical (4) History of multiple allergies Status: Acute Code(s): Z91.89 - Other specified personal risk factors, not elsewhere classified Category: Medical (5) Leukopenia Status: Acute Code(s): D72.819 - Decreased white blood cell count, unspecified Category: Medical (6) Postoperative anemia due to acute blood loss Status: Acute Code(s): D62 - Acute posthemorrhagic anemia Category: Medical
--- NOTE | 2018-10-05 15:21 | OT AM DAY ---
Diagnosis : Right Total Hip Arthroplasty AM - Occupational Therapy S: The patient states she is willing to try adaptive equipment. O: The patient used a disintegrator and sock aide independently. She did very well with her functional transfers. A: Overall the patient did very well. P: Continue seeing patient BID during the week and one time per day over the weekend until discharge. MTDD
== END 2018-10-04 09:17 | disposition home or self-care (01) | DRG 470 ==
LOC: OPS 07:47 → MED/SURG 14:35
PROVIDERS: ADMIT Orthopaedic Surgery; ATTEND Orthopaedic Surgery